=== PATIENT | female | born 1955 | race Caucasian/White ===

== ENCOUNTER → 2020-02-18 11:24 | Outpatient (CLI) | payer MEDICARE, OTHER, SELFPAY ==
--- NOTE | ~2020-02-18 | MM_ITS ---
EXAMINATION: MM screening tish BI w gloria HISTORY: Screening TECHNIQUE: Craniocaudal and mediolateral oblique 3-D tomosynthesis images were obtained and synthetic 2-D images were generated. CAD analysis was submitted and interpreted. COMPARISON: Comparison to multiple prior studies sequentially, with oldest reviewed study dated 08/02. BREAST PARENCHYMAL COMPOSITION: There are scattered areas of fibroglandular density. FINDINGS: There is no evidence of suspicious mass, calcification, or architectural distortion to sugg est malignancy in either breast. There has been no suspicious interval change. IMPRESSION: 1. No mammographic evidence of malignancy. 2. Recommend routine screening mammography in one year. BI-RADS Category 1: Negative Reviewed, dictated and finalized at location A.
== END ==
PROVIDERS: PCP Physician Assistant; Visit Provider Obstetrics & Gynecology
DX: Z12.31 Encounter for screening mammogram for malignant neoplasm of breast (principal)
CPT/HCPCS: 77063; 77067

== ENCOUNTER → 2021-03-09 15:45 | Outpatient (CLI) | payer MEDICARE, OTHER, SELFPAY ==
--- NOTE | ~2021-03-09 | MM_ITS ---
EXAMINATION: MM screening tish BI w gloria HISTORY: Screening mammogram TECHNIQUE: Craniocaudal and mediolateral oblique 3-D tomosynthesis images were obtained and synthetic 2-D images were generated. CAD analysis was submitted and interpreted. COMPARISON: 02/18/2020, 11/23/2018, 10/14/2017 bilateral digital screening mammogram examinations BREAST PARENCHYMAL COMPOSITION: There are scattered areas of fibroglandular density. FINDINGS: There is no evidence of suspicious mass, calcification, or architectural distortion to sugg est malignancy in either breast. There has been no suspicious interval change. IMPRESSION: 1. No mammographic evidence of malignancy. 2. Recommend routine screening mammography in one year. BI-RADS Category 1: Negative Reviewed, dictated and finalized at location A.
== END ==
PROVIDERS: PCP Physician Assistant; Visit Provider Physician Assistant
DX: Z12.31 Encounter for screening mammogram for malignant neoplasm of breast (principal)
CPT/HCPCS: 77063; 77067

== ENCOUNTER 2023-02-28 18:30 | Emergency (ER) | payer MEDICARE, OTHER, SELFPAY ==
--- NOTE | ~2023-02-28 | CT_ITS ---
EXAMINATION: CT abdomen pelvis w con DATE: 02/28/2023 23:03 INDICATION: Abdominal pain and nausea TECHNIQUE: Computed tomography (CT) of the abdomen and pelvis was performed with 100 mL Omnipaque-350 intravenous contrast. Automated exposure control and iterative reconstruction technique were employe d. The dose-length product was 764.95 mGy-cm. COMPARISON: None FINDINGS: Visualized lower lungs are clear. Heart size is normal. No pericardial or pleural effusion. Small sli ding-type hiatal hernia. There is mild edematous wall thickening in the distal esophagus which could be related to reflux esophagitis. Mild dilation of the gallbladder which measures up to 4 6.6 cm diam eter with edematous wall thickening along the gallbladder fossa suspicious for acute cholecystitis. T here is also mild intrahepatic biliary ductal dilation which suggests potential for additional obstru ction of the common bile duct although the common bile duct remains normal in diameter measuring up t o 6 mm. Liver is otherwise unremarkable. Spleen, pancreas, bilateral adrenal glands and kidneys are n ormal. Normal retrocecal appendix. Bowels are normal with no obstruction. 1.6 cm enhancing fibroid at the left posterior uterine fundus. Bladder and bilateral adnexa are unremarkable. No free intraperit costello gas or fluid. No pathologically enlarged abdominal or pelvic lymphadenopathy. 40 degree lumbar levoscoliosis with moderate to severe spondylosis. IMPRESSION: 1. Mild intrahepatic biliary ductal dilation and dilation and edematous wall thickening of the gallbl adder suspicious for obstructing stone with secondary acute cholecystitis. Correlate for Youssef sign with liver function tests and consider further evaluation with either MRCP, right upper quadrant ultr asound or HIDA scan as clinically indicated. 2. Small sliding-type hiatal hernia with mild edematous wall thickening at the distalmost esophagus s uggestive mild reflux esophagitis. Reviewed, dictated and finalized at location A. IMPRESSION: 1. Mild intrahepatic biliary ductal dilation and dilation and edematous wall th ickening of the gallbladder suspicious for obstructing stone with secondary acu te cholecystitis. Correlate for Youssef sign with liver function tests and consi morteza further evaluation with either MRCP, right upper quadrant ultrasound or HID A scan as clinically indicated. 2. Small sliding-type hiatal hernia with mild edematous wall thickening at the distalmost esophagus suggestive mild reflux esophagitis.
[2023-02-28 18:33] VITALS: BP 151/79; PULSE 84; RESP 20; TEMP 36.4; O2SAT 100
[2023-02-28 20:32] LABS: Basophils Percent Auto 0.4 % (0.2-1.2); Eosinophils Percent Auto 0.2 % (0-4.4); Hematocrit 39.4 % (37.0-47.0); Hemoglobin 13.6 g/dL (12.0-15.0); Immature Granulocyte Absolute 0.04 K/mm3 (0.00-0.031); Immature Granulocyte Percent A 0.4 % (0-0.5); Lymphocytes Absolute Auto 0.93 K/mm3 (0.9-3.2); Lymphocytes Percent Auto 9.8 % (18.3-44.2); Mean Corpuscular HGB Conc 34.5 g/dl (32-36); Mean Corpuscular Hemoglobin 33.3 pg (26-34); Mean Corpuscular Volume 96.6 fl (80-100); Mean Platelet Volume 8.6 fl (7.4-10.4); Monocytes Absolute Auto 0.5 K/mm3 (0.1-0.6); Monocytes Percent Auto 5.4 % (2.6-8.5); Neutrophils Absolute Auto 7.9 K/mm3 (1.3-6.7); Neutrophils Percent Auto 83.8 % (45.5-73.1); Platelet Count Result 316 k/mm3 (150-375); Red Blood Count 4.08 M/mm3 (4.2-5.4); Red Cell Distribution Width 13.1 % (11.5-14.5); White Blood Count 9.5 K/mm3 (4.5-10.0)
[2023-02-28 20:44] LABS: Alanine Aminotransferase 21 U/L (6-35); Albumin Level 4.7 g/dL (3.5-5.1); Alkaline Phosphatase 52 U/L (38-126); Anion Gap 10 mmol/L (8-16); Aspartate Amino Transferase 29 U/L (14-36); Bilirubin,Total 0.8 mg/dL (0.2-1.3); Blood Urea Nitrogen 11 mg/dL (7-17); Calcium 9.3 mg/dL (8.4-10.2); Carbon Dioxide 23 mmol/L (22-30); Chloride 96 mmol/L (98-107); Estimated CRCL calculation 90 ml/min; Estimated Glomerular Filt Rate > 60; Glucose 109 mg/dL (65-110); Lipase 45 U/L (23-300); Potassium 3.9 mmol/L (3.4-5.0); Sodium 129 mmol/L (137-145)
[2023-02-28 20:56] LABS: Appearance Urine Clear (Clear); Bacteria Urine None Seen /hpf; Bilirubin Urine Negative (Negative); Blood Urine Negative (Negative); Color Urine Yellow (Yellow); Glucose Urine UA Negative (Negative); Ketones Urine 1+ mg/dL (Negative); Leukocyte Esterase Ur Negative LEU/UL (Negative); Nitrate Urine Negative (Negative); Non Pathogenic Casts 0-2; Protein Urine 1+ mg/dL (Negative); Specific Grav Ur 1.023 (1.001-1.035); Squamous Epithelial Cell Urine None seen /hpf (Few); Urobilinogen Urine 0.2 mg/dL (<2.0); WBC Urine 0-5 /hpf
[2023-02-28 20:59] LABS: Add Urine Microscopic? YES
[2023-02-28 21:53] VITALS: BP 158/74; PULSE 85; TEMP 36.6; O2SAT 99
--- NOTE | 2023-02-28 22:31 | ED.ABDPAIN ---
HPI - Abdominal Pain General Chief Complaint: Abdominal Pain Stated Complaint: abdominal Time Seen by Provider: 02/28/23 22:16 Source: patient Mode of arrival: ambulatory Limitations: no limitations History of Present Illness HPI narrative: This is a 67 year old female that presents to the ER for abdominal pain. Ongoing since this morning. Associated with nausea and vomiting. Reports she was started on Victoza yesterday and has had two injections. Denies fever, diarrhea, or dysuria. Related Data Allergies Allergy/AdvReac Type Severity Reaction Status Date / Time No Known Allergies Allergy Verified 02/28/23 22:30 Review of Systems Review of Systems: CONSTITUTIONAL: Denies fever GASTROINTESTINAL: Reports abdominal pain, nausea, vomiting. Denies diarrhea. GENITOURINARY: Denies dysuria All systems reviewed & are unremarkable except as noted in HPI and below PMFSH Past Medical History Medical History (Updated 03/01/23 @ 01:14 by Barbara Dutta PA-C) History of hypertension Social History Social History (Updated 02/28/23 @ 22:40 by Barbara Dutta PA-C) Smoking status: Never smoker Exam Narrative: GENERAL: Well-appearing, well-nourished, and in no acute distress. HEAD: Normocephalic, atraumatic. EYES: EOMI. ENT: Mucous membranes moist. Oropharynx without tonsillar hypertrophy exudate or other lesions. CHEST: Clear to auscultation. No respiratory distress. No wheezes rales or rhonchi HEART: Regular rate and rhythm. No murmur heard. Normal peripheral pulses. ABDOMEN: Soft, nondistended, normal active bowel sounds. Mildly tender to palpation throughout the abdomen, without guarding. No CVA tenderness EXTREMITIES: Normal range of motion. No edema. SKIN: Warm, dry, no rash. NEURO: No focal deficits. Alert and oriented x3. PSYCH: Normal mood and affect Course Course Emergency Course: Patient reports feeling much better after dose of Toradol. She was updated on work-up. She does not wish to stay in the hospital at this time Vital Signs Vital signs: Vital Signs Temperature 97.6 F 02/28/23 18:33 Pulse Rate 84 02/28/23 18:33 Respiratory Rate 20 02/28/23 18:33 Blood Pressure 151/79 H 02/28/23 18:33 Pulse Oximetry 100 02/28/23 18:33 Oxygen Delivery Room Air 02/28/23 18:33 Temperature 97.8 F 02/28/23 21:53 Pulse Rate 85 02/28/23 21:53 Respiratory Rate 20 02/28/23 18:33 Blood Pressure 158/74 H 02/28/23 21:53 Pulse Oximetry 99 02/28/23 21:53 Oxygen Delivery Room Air 02/28/23 18:33 MDM - Abdominal Pain MDM Narrative Medical decision making narrative: Patient presents to the emergency department for abdominal pain, nausea and vomiting. She is afebrile and nontoxic-appearing. Her vitals are stable. CBC is without leukocytosis. Metabolic panel does show some dehydration. Patient given a liter of IV fluids in the ED. Lipase is normal. UA without evidence of infection. CT scan of the abdomen pelvis shows mild intrahepatic biliary ductal dilation and dilation and edematous wall thickening of the gallbladder suspicious for obstructing stone with secondary acute cholecystitis. Correlate for Youssef sign with liver function tests and consider further evaluation with either MRCP, right upper quadrant ultrasound or HIDA scan as clinically indicated. Small sliding-type hiatal hernia with mild edematous wall thickening at the distalmost esophagus suggestive of mild reflux esophagitis. Patient and family updated on work-up. She does not wish to stay in the hospital for any further evaluation or management at this time. She does report she has seen a general surgeon about her gallbladder in the past. 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 Will be started on oral antibiotics and instructed on low-fat diet. Given pain and nausea medication as needed. She is to follow-up with her specialist. She was instructed to return at any time for further evaluation an
[2023-02-28] MEDS: SODIUM CHLORIDE 0.9% IV 1,000 ML 999 ML IV CONT (22:38)
[2023-02-28] MEDS: MORPHINE SULFATE (*CRX) 4 MG/ML INJ IV PUSH (22:51)
[2023-02-28] MEDS: ONDANSETRON INJ 4 MG/2 ML VIAL IV PUSH (22:51)
[2023-02-28] MEDS: KETOROLAC 15 MG/ML VIAL (*BKC) IV PUSH (23:45)
== END 2023-03-01 01:31 | disposition home or self-care (01) ==
PROVIDERS: Emergency Medicine; Emergency Provider Physician Assistant; PCP Family Medicine
DX: K80.50 Calculus of bile duct without cholangitis or cholecystitis without obstruction (principal); I10 Essential (primary) hypertension; K44.9 Diaphragmatic hernia without obstruction or gangrene
CPT/HCPCS: 36415; 74177; 80053; 81001; 83690; 85025; 96361; 96374; 96375; 99284; J1885; J2270; J2405; J7030; Q9967